=== PATIENT | male | born 1950 | race Caucasian/White ===

== ENCOUNTER 2020-08-23 06:51 | Observation (INO) ==
--- NOTE | 2020-08-18 09:21 | Anesthesiology Consultation ---
Date of Service August 18, 2020 Assessment & Plan (1) Encounter for pre-operative examination: Chart Review Chart Review: Acceptable Risk for Surgery and Patient NOT seen in Pre Admission Testing Per nursing assessment 08/04/20, patient denies any recent travel. No known Covid positive contacts or Covid related symptoms. Pt denies any known Covid infection in the past 90 days. Covid test 08/17/20= negative Seen by PCP 06/14/20= "Medically stable and cleared for elective right hip surgery Jun 18, 2020" (Pt was rescheduled to 08/23/20) Left cubital tunnel release 02/05/20= Done under [facility] with LMA #5. No anesthesia issues noted per anesthesia record. History Surgery Operation Date: 08/23/20 07:30 Proposed Procedures p Right Anterior Total Hip Arthroplasty - Fracisco Beaulieu DO Height/Weight Height: 5 ft 8 in Weight: 83.915 kg Allergies Allergy/AdvReac Type Severity Reaction Status Date / Time No Known Allergies Allergy Verified 08/04/20 11:18 Medications Home Medications Medication Instructions Recorded Confirmed Last Taken rosuvastatin 20 mg tablet 20 mg PO HS 06/17/19 08/04/20 02/04/20 PreserVision AREDS-2 1 tab PO BID 01/22/20 08/04/20 01/29/20 aspirin [Aspir-81] 81 mg PO HS 01/22/20 08/04/20 01/15/20 cholecalciferol (vitamin D3) 50 mcg PO QAM 01/22/20 08/04/20 01/29/20 [Vitamin D3] diazepam 2 mg PO HS PRN 01/22/20 08/04/20 02/03/20 lifitegrast [Xiidra] 1 drp OPHTHALMIC (EYE) AMPM 05/10/20 08/04/20 Unknown olmesartan-hydrochlorothiazide 1 tab PO PM 06/28/20 08/04/20 Unknown [Benicar HCT] meloxicam 15 mg tablet 15 mg PO QAM #30 tab 07/07/20 08/04/20 Unknown oxycodone-acetaminophen 5 mg-325 1 tab PO Q6H PRN #60 tab 08/17/20 Unknown mg tablet Past Medical History Medical History Dry eye syndrome High blood pressure High cholesterol Osteoarthritis RLS (restless legs syndrome) Past Family History Family History Sister Family history of colon cancer Other No family history of adverse response to anesthesia Past Surgical History Surgical History History of carpal tunnel release of both wrists History of colonoscopy History of laminectomy History of vasectomy S/P cubital tunnel release LEFT [place] teeth removed Social History Smoking Status: Never smoker Do You Dip or Chew Tobacco: No Hx Alcohol Use: Yes Alcohol type: beer and wine alcohol intake frequency: a few times a week Hx Substance Use: No substance use type: does not use Testing Laboratory Results Laboratory Tests 05/19/20 08/17/20 08/17/20 11:13 08:23 08:23 WBC 4.05 L Hgb 14.4 Hct 41.9 L Plt Count 193 PT 11.0 INR 1.0 APTT 26.7 Sodium 141 Potassium 3.9 Chloride 106 Carbon Dioxide 29 BUN 23 H Creatinine 0.95 Glucose 95 Electrocardiogram Date: 01/29/20 Findings: + SB @ (57bpm) Left axis deviation. Incomplete RBBB. Possible anterior infarct, age undetermined. When compared to EKG from May 30, 2013- no significant change was found per cardio. (Pt had left cubital tunnel release 02/05/20 under [facility] without issues/Dr Tammie Palma felt EKG similar in comparison to 2012 EKG)
--- NOTE | 2020-08-19 08:24 | History & Physical Report ---
Date of Service August 19, 2020 Assessment & Plan (1) Osteoarthritis of right hip: We will proceed with a right total hip arthroplasty. Postoperatively he will be started on aspirin for DVT prophylaxis and kept overnight in the hospital for postoperative medical management. He plans [facility] discharge. History of Present Illness Chief Complaint: Osteoarthritis of the right hip. Primary Care Provider: Say M. Akil Benavides is a pleasant 70-year-old male who is been dealing with chronic increasing right hip and groin pain. X-rays and clinical examination have been diagnostic for advanced osteoarthritis of the right hip. After failing conservative treatment, he has elected to proceed with a right total hip arthroplasty.. Allergies Allergy/AdvReac Type Severity Reaction Status Date / Time No Known Allergies Allergy Verified 08/04/20 11:18 Home Medications Medication Instructions Recorded Confirmed Type rosuvastatin 20 mg tablet 20 mg PO HS 06/17/19 08/04/20 History PreserVision AREDS-2 1 tab PO BID 01/22/20 08/04/20 History aspirin [Aspir-81] 81 mg PO HS 01/22/20 08/04/20 History cholecalciferol (vitamin D3) 50 mcg PO QAM 01/22/20 08/04/20 History [Vitamin D3] diazepam 2 mg PO HS PRN 01/22/20 08/04/20 History lifitegrast [Xiidra] 1 drp OPHTHALMIC (EYE) AMPM 05/10/20 08/04/20 History olmesartan-hydrochlorothiazide 1 tab PO PM 06/28/20 08/04/20 History [Benicar HCT] meloxicam 15 mg tablet 15 mg PO QAM #30 tab 07/07/20 08/04/20 Rx oxycodone-acetaminophen 5 mg-325 1 tab PO Q6H PRN #60 tab 08/17/20 Rx mg tablet Past Med/Surg History Medical History Dry eye syndrome High blood pressure High cholesterol Osteoarthritis RLS (restless legs syndrome) Surgical History History of carpal tunnel release of both wrists History of colonoscopy History of laminectomy History of vasectomy S/P cubital tunnel release LEFT [place] teeth removed Family History Sister Family history of colon cancer Other No family history of adverse response to anesthesia Social History Smoking Status: Never smoker Second Hand Exposure: No; Hx Alcohol Use: Yes Alcohol type: beer and wine Hx Substance Use: No Preferred Language: Sammarinese Communication Ability: Effective Deployment Specialist Required: No Beliefs That Will Affect Care: Buddhist Buddhist Beliefs: ALEVISM Current Living Situation: Spouse Feels Safe at Home: Yes Assistive Devices: Glasses Review of Systems All systems reviewed & are unremarkable except as noted in HPI & below. Physical Exam On physical examination of the right hip, he ambulates independently. He has decreased range of motion. He has pain with forced internal rotation.. Constitutional WD/WN, vitals as above Eyes PERRL, conjunctivae normal, anicteric sclerae ENMT external ear and nose normal, oropharynx normal Neck trachea midline, no thyromegaly Respiratory normal respiratory effort Cardiovascular RRR, no murmur, no edema Gastrointestinal (Abdomen) normal bowel sounds, soft, nontender, no hepatosplenomegaly Psychiatric A+Ox3, euthymic affect Results & Data Results & Data Laboratory Results . Diagnostic Findings X-rays of the right hip do shows joint space narrowing osteophyte formation and [id number] articulation.. PG Care Time/CCT Total # of Minutes Spent Total Time Spent with Patient: Total time spent is greater than 50% in coordination of care (as documented) at patient's floor/unit and/or counseling patient: Coding Level of Care Code None Diagnoses Osteoarthritis of right hip M16.11
[~2020-08-23 06:51] MED LIST: ACETAMINOPHEN 500 MG TAB PO SCH; BUPIVACAINE 0.5 % 5 MG/1 ML PF 10ML VIAL ONE; FAMOTIDINE 20 MG TAB PO SCH; GABAPENTIN 300 MG CAP PO SCH; LR 500ML BOLUS, THEN 15ML/HR IV SCH; LR 60ML/HR IV SCH; ROPIVACAINE 0.5% HCL/PF 150 MG, BUPIVACAINE 0.75% MPF 20 ML, EPINEPHrine 30MG/30ML (OR ... INSTIL SCH; TRANEXAMIC ACID 1,000 MG **IV Intra-op IV SCH; TRANEXAMIC ACID 1,000 MG **IV Pre-op IV SCH; ceFAZolin 2000MG 2,000 MG/15 ML SYR IV SCH; dexAMETHasone 4 MG TAB PO SCH
--- NOTE | 2020-08-23 06:56 | History & Physical Bridge Note ---
Date of Service August 23, 2020 History & Physical Bridge Note I have examined the patient, reviewed the History & Physical and in the interval since the performance of the History & Physical I have noted the following changes of clinical significance: no changes noted
[2020-08-23] MEDS ORDERED: PROPOFOL IV EMULSION 10 MG/ML 20 ML VIAL IV ONE (07:46)
[2020-08-23] MEDS ORDERED: LIDOCAINE HCL 2% 2 ML VIAL/AMP(20MG/ML) INFIL ONE (07:46)
[2020-08-23] MEDS ORDERED: fentaNYL citrate 100 MCG/2 ML VIAL ONE (07:47)
[2020-08-23] MEDS ORDERED: MIDAZOLAM HCL 1 MG/ML 2ML VIAL ONE ×2 (07:47→09:39)
[2020-08-23] MEDS ORDERED: fentaNYL citrate 100 MCG/2 ML VIAL IV PRN ×2 (08:03→08:29)
[2020-08-23] MEDS ORDERED: ONDANSETRON INJ 2 MG/ML 2 ML VIAL IV PRN ×3 (08:03→12:17)
[2020-08-23] MEDS ORDERED: HYDROmorphone INJ 1 MG/ML SYRINGE IV PRN ×2 (08:03→08:29)
[2020-08-23] MEDS ORDERED: ePHEDrine sulfate 50 MG/ML AMP IV PRN ×2 (08:03→08:29)
[2020-08-23] MEDS ORDERED: ATROPINE SULFATE 0.1 MG/ML 10ML SYR IV PRN ×2 (08:03→08:29)
[2020-08-23] MEDS ORDERED: ORTHO JOINT ANESTHETIC ONE (09:02)
--- NOTE | 2020-08-23 10:44 | Operative Report ---
PG Post Operative Report Pre & Post Diagnosis Operation Date: 08/23/20 09:05 Pre-Op Diagnosis: Degenerative Joint Disease Right Hip Post-Op Diagnosis: Degenerative Joint Disease Right Hip I identified the patient and participated in the time-out.: Yes Procedure Operation Date: 08/23/20 09:05 Actual Procedures p Right Anterior Total Hip Arthroplasty(Right) - Fracisco Beaulieu DO Surgeon Fracisco Beaulieu DO Lozenge Maker Helper rFacisco Robison PAC Estimated Blood Loss 300 Findings Consistent with Post-Op Diagnosis Specimens Right femoral head Complications none Disposition Disposition: Recovery Room Indications Kennedy is a pleasant 70-year-old male who is been dealing with chronic increasing right hip and groin pain. X-rays and clinical examination have been diagnostic for advanced osteoarthritis of the right hip. After failing conservative treatment, he elected to proceed with a right total hip arthroplasty. Description of Procedure Implants used I used a Biomet Taperloc total hip arthroplasty system with a size 11 high offset Taperloc stem, a 54 mm G7 cup with a 25mm screw, an E1 polyethylene liner, a 40 mm ceramic head with a -3 neck. Kennedy arrived at the hospital for the above procedure. He was seen in the preoperative holding area and the operative extremity was identified and signed. He was given a spinal anesthetic, a preoperative antibiotic, and TXA. He was then taken back to the operating room and laid on the table in the supine position. He was given basic sedation. The operative leg was secured to a Puristst leg positioner. The hip was then prepped and draped in sterile fashion. A timeout was done and the patient and the operative extremity was properly identified. An anterior approach was used. Dissection was taken down through the fascia and the tensor muscle belly was retracted laterally and the rectus was retracted medially. The circumflex vessels were identified and ligated. The capsule was then incised and tagged for later repair. The femoral neck was then cut and the femoral head was removed. The acetabulum was exposed. Time was spent doing a complete circumferential labral release. Sequential reaming of the acetabulum up to a size 53 reamer was done. Final reamings were done under fluoroscopy to ensure appropriate version. A Biomet 54 mm G7 cup was then impacted into place. A single 25 mm screw was placed. The E1 polyethylene liner was then snapped into place. Surrounding soft tissues were then injected with 100 cc of an orthopedic pain control cocktail. The proximal femur was then exposed. Sequential broaching up to a size 11 broach was done. Off that broach a size 40 head with a -3 neck was trialed. The hip was reduced and fluoroscopic images showed anatomic alignment of the implants in acceptable length. The broach was removed. The final size 11 high offset Taperloc stem was then impacted into place. A ceramic 40 mm head with a -3 neck was then impacted onto the stem and the hip was reduced. Final fluoros copic images showed anatomic alignment of the hip. The capsule was then closed with #1 Vicryl suture. A dilute betadyne lavage was then done for 3 minutes. The joint was then irrigated with normal saline solution. The fascia was closed with #1 PDS suture. Skin was closed with 2-0 Vicryl, kira, and a Silverlon dressing. He was then transferred to a hospital bed and taken to the post anesthesia care unit in stable condition. He tolerated the procedure well. Fracisco Robison PA-C, was present for the entire procedure. He was critical for patient positioning, prepping, draping, retraction exposure, wound closure and application of sterile dressing. I attest to the content of the Intraoperative Record and any orders documented therein. Any exceptions are noted below.
--- NOTE | 2020-08-23 11:38 | Anesthesiology Progress Note ---
Date of Service August 23, 2020 Anesthesia Post Procedure Vital Signs Vital Signs: Temp Pulse Pulse Resp BP BP Pulse Ox 08/23/20 11:30 63 16 95/51 L 98 08/23/20 11:20 65 19 100/51 L 99 08/23/20 11:10 67 17 101/53 L 97 08/23/20 11:03 36.2 C L 72 25 H 107/58 L 100 08/23/20 07:27 36.9 C 60 18 133/71 96 Pain Intensity Left Hip: Pain Intensity: 0 Right Hip: Pain Intensity: 0 Transfer of Care Handoff Completed per policy Notes Mental Status: alert / awake / arousable and participated in evaluation Patient Amnestic to Procedure: Yes Nausea / Vomiting: adequately controlled Pain: adequately controlled Airway Patency, RR, SpO2: stable & adequate BP & HR: stable & adequate Hydration State: stable & adequate Neuraxial Anesthesia: was administered and sensory block is resolving Anesthetic Complications: no major complications apparent and Pt Satisfied with anesthetic care
--- NOTE | 2020-08-23 11:41 | XRay Report ---
XR hip 1V RT w pelvis CLINICAL HISTORY: IN PACU - A/P PELVIS and LATERAL HIP COMPARISON: None. DISCUSSION: There are postsurgical changes of a total right hip arthroplasty. There are overlying ski n kira. There is gas present within the soft tissues consistent with recent surgery. The acetabula r and femoral components appear well seated. There is no dislocation. IMPRESSION: Postsurgical changes of a total right hip arthroplasty ACT 112: Negative or not required by law. Electronically signed by: Michelet Anaya M.D. 08/23/2020 11:40 AM
[2020-08-23] MEDS ORDERED: diazePAM 2 MG TABLET PO PRN (12:17)
[2020-08-23] MEDS ORDERED: METOCLOPRAMIDE HCL INJ 5 MG/ML 2 ML VIAL IV PRN (12:17)
[2020-08-23] MEDS ORDERED: MAGNESIUM HYDROXIDE SUSP 30 ML UDC PO PRN (12:17)
[2020-08-23] MEDS ORDERED: NALOXONE HCL 0.4 MG/1 ML VIAL/CARP IV PRN (12:17)
[2020-08-23] MEDS ORDERED: oxyCODONE HCL IR 5 MG TAB (IMMEDIATE RELEASE) PO PRN (12:17)
[2020-08-23] MEDS ORDERED: HYDROmorphone INJ 0.5 MG/0.5 ML SYR IV PRN (12:17)
[2020-08-23] MEDS ORDERED: bisacodyL 10 MG SUPP PR PRN (12:17)
--- NOTE | 2020-08-23 12:27 | Fluoroscopy Report ---
FL hip RT 1V CLINICAL HISTORY: RIGHT ANTERIOR MINH COMPARISON STUDY: 02/23/2020 FLUOROSCOPY TIME: 22 seconds. NUMBER OF FLUOROSCOPIC IMAGES: 2 FINDINGS: 2 intraoperative fluoroscopic spot images demonstrate a total right hip arthroplasty. The acetabular and femoral components appear well seated. IMPRESSION: Intraoperative fluoroscopic spot images demonstrating a total right hip arthroplasty. ACT 112: Negative or not required by law. Electronically signed by: Michelet Anaya M.D. 08/23/2020 12:26 PM
[2020-08-23] MEDS: SODIUM CHLORIDE 0.9% 1000ML 1,000 ML IV SCH ×2 (13:18→23:05)
[2020-08-23] MEDS: KETOROLAC 30 MG/ML VIAL IV SCH ×2 (13:52→20:59)
[2020-08-23] MEDS: ACETAMINOPHEN 500 MG TAB PO SCH ×2 (13:52→21:08)
[2020-08-23] MEDS: ceFAZolin 2000MG 2,000 MG/15 ML SYR IV SCH (16:30)
[2020-08-23] MEDS ORDERED: hydroCHLOROthiazide 25 MG TAB PO SCH (21:00)
[2020-08-23] MEDS ORDERED: SENNA 8.6 MG TAB PO SCH (21:00)
[2020-08-23] MEDS ORDERED: OLMESARTAN MEDOXOMIL 20 MG TAB PO SCH (21:00)
[2020-08-23] MEDS ORDERED: ROSUVASTATIN CALCIUM 20 MG TAB PO SCH (21:00)
[2020-08-23] MEDS ORDERED: OLMESARTAN HYDROCHLOROTHIAZIDE PO SCH (21:00)
[2020-08-23] MEDS: DOCUSATE SODIUM 100 MG CAP PO SCH (21:02)
[2020-08-23] MEDS: ASPIRIN 81 MG ECTAB PO SCH (21:04)
[2020-08-23] MEDS: XIIDRA OP SCH (21:05)
[2020-08-24] MEDS: KETOROLAC 30 MG/ML VIAL IV SCH ×3 (01:25→13:18)
[2020-08-24] MEDS: ceFAZolin 2000MG 2,000 MG/15 ML SYR IV SCH (01:25)
[2020-08-24] MEDS: ACETAMINOPHEN 500 MG TAB PO SCH ×2 (05:10→13:17)
[2020-08-24 05:55] LABS: Hematocrit (blood only) 30.7 % (42-52); Hemoglobin 10.3 g/dL (14.0-18.0); Immature Granulocytes # (auto) 0.01 K/uL (0.00-0.02); Immature Granulocytes % (auto) 0.1 %; Lymphocytes % (auto) 7.7 %; Mean Corpuscular Hemoglobin 30.8 pg (25-34); Mean Corpuscular Hgb Conc 33.6 g/dL (32-36); Mean Corpuscular Volume 91.9 fL (80-100); Mean Platelet Volume 10.4 fL (7.4-10.4); Monocytes % (auto) 8.8 %; Neutrophils # (auto) 7.59 K/uL (1.4-6.5); Neutrophils % (auto) 83.4 %; Platelet Count 162 K/uL (130-400); RDW Coefficient of Variation 13.1 % (11.5-14.5); Red Blood Count 3.34 M/uL (4.7-6.1)
[2020-08-24 06:21] LABS: Calcium 8.2 mg/dl (8.5-10.1); Creatinine Clr Calc Pharmacy 78.7 ml/min; Est GFR (African American) 91.4; Est GFR (Non-African American) 78.9; Potassium 3.6 mmol/L (3.5-5.1)
--- NOTE | 2020-08-24 06:49 | Orthopedic Progress Note ---
Date of Service August 24, 2020 Assessment & Plan (1) Status post right hip replacement: Overall he is doing very well. Is not having much pain in the right hip. He is on aspirin for DVT prophylaxis. He will be seen by physical therapy later this morning for ambulation and range of motion exercises. He can then be discharged to home. He will follow-up with orthopedics in 2 weeks. Roberto Benavides was seen and examined at bedside this morning. Overall he is doing very well. Is not having much pain in the right hip. He has been up and ambulating to the bathroom. He has no complaints.. Review of Systems All systems reviewed & are unremarkable except as noted in HPI & below. Physical Exam On physical examination of the right hip, the dressing is clean and dry. His leg lengths are equal. He has active dorsiflexion and plantarflexion of his right ankle.. Results & Data Results & Data Laboratory Results H & H 08/24/20 Range/Units 05:43 Hgb 10.3 L (14.0-18.0) g/dL Hct 30.7 L (42-52) % . Diagnostic Findings Postoperative x-rays of the right hip show the prosthesis to be in anatomic alignment without any evidence of fracture, dislocation, or loosening.. PG Care Time/CCT Total # of Minutes Spent Total Time Spent with Patient: Total time spent is greater than 50% in coordination of care (as documented) at patient's floor/unit and/or counseling patient: Coding Level of Care Code 45323 Post Operative Follow-Up Diagnoses Status post right hip replacement Z96.641
--- NOTE | 2020-08-24 06:50 | Discharge Summary ---
Date of Service August 24, 2020 Admission HPI (Per Admitting) Kennedy is a pleasant 70-year-old male who is been dealing with chronic increasing right hip and groin pain. X-rays and clinical examination have been diagnostic for advanced osteoarthritis of the right hip. After failing conservative treatment, he has elected to proceed with a right total hip arthroplasty.. Admission Exam (Per Admitting) On physical examination of the right hip, he ambulates independently. He has decreased range of motion. He has pain with forced internal rotation.. Principal Diagnosis Same as "Discharge Diagnosis" noted below under Discharge Instructions. Discharge Exam On physical examination of the right hip, the dressing is clean and dry. His leg lengths are equal. He has active dorsiflexion and plantarflexion of his right ankle.. Discharge Data Consultations 08/24/20 08:00 Consult Case Management - Discharge Planning Routine Procedures Performed Operation Date: 08/23/20 09:05 Actual Procedures p Right Anterior Total Hip Arthroplasty(Right) - Fracisco Beaulieu DO Ordered Studies 08/23/20 09:05 FL fluoroscopy <1hr Routine FL hip RT 1V Routine Hospital Course (1) Status post right hip replacement: On August 23, 2020 Kennedy arrived at [facility] and underwent a right total hip arthroplasty without complication. He had a spinal anesthetic. Postoperatively he was started on aspirin for DVT prophylaxis and transferred to the general orthopedic floors. His hospital course was uneventful. On postop day #1 his H&H was stable and his pain is well controlled. He was able to participate well with physical therapy doing ambulation and range of motion exercises. He was then discharged home. He will follow-up with orthopedics in 2 weeks. PG Care Time/CCT Total # of Minutes Spent Total Time Spent with Patient: Total time spent is greater than 50% in coordination of care (as documented) at patient's floor/unit and/or counseling patient: Discharge Plan Discharge Items Patient Disposition: Home - Home Health Services Reason For Visit: Degenerative Joint Disease Right Hip Discharge Diagnosis: Right hip replacement Activity: Resume your previous activity Non-emergency contact: Surgeon Call non-emergency contact if: your wound has increased redness and your wound has increased drainage Follow-up/Referrals: Say Barnard DO [Primary Care Provider] - Addtl Attending Provider Instructions: Activity and Therapy Recommendations: * If you are using [facility] then therapy will be provided at your home until they feel you have accomplished all of your goals. * If you are using [facility] then Physical Therapy will be provided until they feel you are ready to start Outpatient Physical Therapy. * If you are not using home therapy then Outpatient Physical Therapy should start about 3-5 days from your day of surgery. Therapy will last about 6-10 weeks * You were shown a series of exercises in the hospital. Do these exercises three times each day including the exercises you were shown in physical therapy. * Get up and walk several times each day.~ For the first four weeks, try not to stand or walk for more than one hour at a time. If you do stand or walk for more than one hour, you will not hurt anything, but your leg will likely swell.~~ * As you feel comfortable, you may change from the walker or crutches to a cane and~then to independent walking. Medications: * Narcotic You will likely be sent home from the hospital with a prescription for the narcotic pain medication that worked best throughout your stay. * Aspirin Most patients will be required to take Aspirin 81mg twice a day for 6 weeks after surgery. This is obtained [id number] and a prescription is not necessary. * Other medications may be prescribed for specific circumstances. If you have any questions, please call the office at . * Resume previous home medications unless otherwise instructed TEDs/Elastic Stockings: The white elastic stockings help limit swelling and prevent blood clots from forming in your legs. The more you wear them, the more they work. Wear them for six weeks. Dressing Care: Leave the Silverlon dressing in place for 7 days. After 7 days you may remove the dressing. If the incision is not draining then you may leave the kira open to air. If there is a little bit of drainage or if the kira are getting stuck on your clothing then cover the incision with a dry dressing. The kira will be removed at your 2 week follow-up appointment. Showering: You may shower with the Silverlon dressing in place. Do not let the shower spray hit the dressing directly. Pat the Silverlon dressing dry. If the dressing becomes wet underneath, then simply remove the dressing. Keep the incision dry until you are 7 days out from the day of surgery. After 7 days you may remove the Silverlon dressing and shower with the kira exposed. Let soapy water run over the kira and pat them dry. Do not scrub or soak the incision. Things To Watch For: * Drainage from the incision site that occurs more than one week after your surgery. * Increased redness at the incision site. * Fever above 102 degrees Fahrenheit. * Unusual chest pain or shortness of breath. * Call [facility] at with any of the above problems Follow-Up Visit: Follow-up with Dr. Beaulieu's PA (Fracisco Robison) 2-3 weeks after your day of surgery. He will remove your kira and answer any questions. If you have any additional questions or concerns, Dr Beaulieu is usually in the office at the same time and will be available An appointment was probably scheduled when you signed-up for surgery in the office. If you have any questions call Office Instructions: More detailed instructions as well as Frequently Asked Questions were provided in a folder by our office when you signed-up for surgery. Please review these instructions when you get home. If you have any further questions or concerns, please feel free to call the office at [phone] Pending Studies at Discharge: No Stand-Alone Forms: My [facility] CLEAR Medications and DC Order Prescriptions: New aspirin 81 mg Tablet,Delayed Release (Dr/Ec) 81 mg PO BID 42 Days Qty: 0 RF: 0 Continued meloxicam 15 mg tablet 15 mg PO QAM Qty: 30 RF: 2 oxycodone-acetaminophen [Percocet] 5-325 mg tablet 1 tab PO Q6H PRN (Reason: pain) Qty: 60 RF: 0 rosuvastatin [Crestor] 20 mg tablet 20 mg PO HS RF: 0 diazepam 2 mg Tablet 2 mg PO HS PRN (Reason: Sleep & RLS ) RF: 0 cholecalciferol (vitamin D3) [Vitamin D3] 50 mcg (2,000 unit) Capsule 50 mcg PO QAM RF: 0 PreserVision AREDS-2 [id number] Capsule 1 tab PO BID RF: 0 olmesartan-hydrochlorothiazide [Benicar HCT] 20-12.5 mg Tablet 1 tab PO PM RF: 0 Xiidra 5 % Dropperette 1 drp OPHTHALMIC (EYE) AMPM RF: 0 Discontinued aspirin [Aspir-81] 81 mg Tablet,Delayed Release (Dr/Ec) 81 mg PO HS RF: 0 Discharge Orders: Discharge Order (Routine); Ordered 08/24/20 Ordered By: Fracisco Beauliue Admission Data Admit Date/Time: 08/23/20 11:03 Attending Provider: Fracisco Beaulieu Admit Provider: Fracisco Beaulieu Primary Care Provider: Say Barnard
--- NOTE | 2020-08-24 07:31 | Anesthesiology Progress Note ---
Date of Service August 24, 2020 Anesthesia Post Procedure Vital Signs Vital Signs: Temp Pulse Pulse Resp BP Pulse Ox 08/24/20 03:23 36.7 C 68 16 112/68 95 08/23/20 22:20 36.9 C 85 16 103/70 95 08/23/20 19:32 36.7 C 93 H 16 116/66 92 08/23/20 15:00 37.0 C 77 17 116/70 96 08/23/20 14:02 36.9 C 74 16 108/66 95 08/23/20 13:00 36.6 C 74 18 123/73 95 08/23/20 12:28 36.9 C 66 17 110/71 94 08/23/20 12:00 36.3 C L 64 16 97/62 L 98 08/23/20 11:45 36.3 C L 66 15 103/52 L 97 08/23/20 11:40 64 19 105/53 L 99 08/23/20 11:30 63 16 95/51 L 98 08/23/20 11:20 65 19 100/51 L 99 08/23/20 11:10 67 17 101/53 L 97 08/23/20 11:03 36.2 C L 72 25 H 107/58 L 100 Pain Intensity Left Hip: Pain Intensity: 0 Right Hip: Pain Intensity: 0 Notes Mental Status: alert / awake / arousable and participated in evaluation Patient Amnestic to Procedure: Yes Nausea / Vomiting: adequately controlled Pain: adequately controlled Airway Patency, RR, SpO2: stable & adequate BP & HR: stable & adequate Hydration State: stable & adequate Anesthetic Complications: no major complications apparent and Pt Satisfied with anesthetic care
[2020-08-24] MEDS ORDERED: dexAMETHasone 4 MG TAB PO SCH (08:00)
[2020-08-24] MEDS: MULTIVITAMIN TAB PO SCH ×2 (08:41→08:48)
[2020-08-24] MEDS: ASPIRIN 81 MG ECTAB PO SCH (08:42)
[2020-08-24] MEDS: DOCUSATE SODIUM 100 MG CAP PO SCH (08:42)
[2020-08-24] MEDS: XIIDRA OP SCH (08:43)
[2020-08-24] MEDS ORDERED: CEROVITE ADV FORMULA TAB PO SCH (09:00)
== END 2020-08-24 14:10 | disposition home health service (06) ==
LOC: 3E 06:51 → ASU 06:51